=== PATIENT | male | born 1950 | race Caucasian/White ===

== ENCOUNTER 2017-02-02 07:42 | Emergency (ER) | payer BC ==
[~2017-02-02] VITALS: Ht 177.8 cm; Wt 84.2 kg
[~2017-02-02 07:42] MED LIST: IBUP-103 PO
[2017-02-02 07:47] VITALS: TEMP 36.7; Ht 177.8 cm; Wt 84.2 kg
[2017-02-02] MEDS ORDERED: OXYMETAZOLINE HCL 0.05% NA SPR 15 ML BTL ONE (07:52)
--- NOTE | 2017-02-02 07:59 | EMERGENCY ROOM VISIT NOTE ---
History First contact with patient: 07:50 Chief Complaint: NOSE BLEED (MINOR) Stated Complaint: NOSEBLEED History of Present Illness The patient is a 66 year old male who presents to the Emergency Room with complaints of epistaxis. The patient states that he blew his nose this morning around 7:15 and his nose began to bleed. He states he is not able to get the bleeding to stop. He does feel blood going down the back of his throat. The patient reports occasional blood with blowing his nose but never like this. He reports having epistaxis as a child. The patient does not take blood thinners. He does not have a history of hypertension. He is normotensive today. The patient denies any earache, sore throat, cough. He denies any pain in his chest or trouble breathing. Review of Systems A 10 system review of systems was completed with positives and pertinent negatives listed in the HPI. Past Medical/Surgical History Medical Problems: (1) Inguinal hernia (2) Prostate cancer Surgical Problems: (1) H/O prostatectomy Social History Smoking Status: Never Smoker Marital Status: Housing Status: lives with significant other Occupation Status: employed Current/Historical Medications No Active Prescriptions or Reported Meds Physical Exam Vital Signs Date Time Temp Pulse Resp B/P (MAP) Pulse Ox O2 Delivery O2 Flow Rate FiO2 02/02/17 08:43 67 15 133/77 97 02/02/17 07:47 36.7 73 20 128/90 97 Room Air Physical Exam VITALS: Vitals are noted on the nurse's note and reviewed by myself. Vital signs stable. The patient is normotensive. He is not tachycardic. GENERAL: This is a 66-year-old male, in no acute distress, nondiaphoretic, well- developed well-nourished. SKIN: The skin was without rashes, erythema, edema, or bruising. There is no tenting of the skin. Capillary reflex less than 2 seconds. HEAD: Normocephalic atraumatic. EARS: The external ears are normal in appearance. EYES: Pupils equal round and reactive to light and accommodation. Conjunctivae without injection, sclerae without icterus. Extraocular movements intact. NOSE: There is minimal active bleeding noted from the left naris. There is no blood noted in the right naris. There is no obvious excoriation to the septum. MOUTH: Mucous membranes moist. Tonsils are not enlarged. There is minimal blood noted in the posterior pharynx. Uvula midline. Airway patent. Tongue does not deviate. NECK: Supple without nuchal rigidity. No lymphadenopathy. No thyromegaly. Cervical spine is nontender. No JVD. HEART: Regular rate and rhythm without murmurs gallops or rubs. LUNGS: Clear to auscultation bilaterally without wheezes, rales or rhonchi. No retractions or accessory muscle use. MUSCULOSKELETAL: No muscle atrophy, erythema, or edema noted. Full range of motion in all extremities Normal gait. Strength 5/5 throughout. NEURO: Patient was alert and oriented to person place and time. No focal neurological deficits. Medical Decision & Procedures Medications Administered Medications (Trade) Dose Ordered Sig/Adryan Route Start Time Stop Time Status Last Admin Dose Admin Oxymetazoline HCl (Afrin 0.05% Nasal Harvey) 75 sprays STK-MED ONCE .ROUTE 02/02/17 07:52 02/02/17 07:53 DC 02/02/17 07:58 75 SPRAYS ED Course The patient was seen and examined. Previous visits were reviewed. The patient was normotensive. He does not take any blood thinners. The patient presented with spontaneous epistaxis from the left naris. Afrin was instilled and a clamp was placed for 20 minutes. The patient was reassessed and the bleeding had stopped. The patient should return with recurrence of bleeding that he cannot stop at home. Otherwise, he should follow-up with his family doctor or otolaryngology. Medical Decision Differential diagnosis includes hypertension, epistaxis, sinusitis, among others Medication Reconcilliation Current Medication List: was personally reviewed by me Blood Pressure Screening Patient's blood pressure: Normal blood pressure Blood pressure disposition: Did not require urgent referral Impression Primary Impression: Epistaxis Departure Information Dispostion Home / Self-Care Condition GOOD Prescriptions No Active Prescriptions or Reported Meds Referrals No Doctor, Assigned (PCP) Nhan Harris M.D. Patient Instructions ED [facility] Accumulate Additional Instructions Afrin. Harvey 2-3 sprays in your nostril if the bleeding begins again. Then, apply a nasal clamp to the lower part of your nose and leave on 15-20 minutes. If the bleeding continues after this, return to the emergency department. Do not use more than 6 sprays in 24 hours. Do not use the Afrin for more than 3 days in a row. Use a saline nasal spray to help moisturize the nasal passages. You may try Vaseline in the nostril at night to help keep it moisturized. Run a cool mist vaporizer in your room at night to help moisturize the air and prevent dryness to the nose. Return with any worsening bleeding or bleeding you cannot stop. Otherwise, follow up with an ENT doctor or your family doctor for recheck.
[2017-02-02 08:43] VITALS: BP 133/77; PULSE 67; O2SAT 97
== END 2017-02-02 08:44 | disposition home or self-care (01) ==
LOC: C.EDB 07:43 → C.EDA 08:44
DX: R04.0 Epistaxis (principal); C61 Malignant neoplasm of prostate

== ENCOUNTER 2017-08-02 22:11 | Emergency (ER) | payer BC, OTHER ==
[~2017-08-02] VITALS: Ht 177.8 cm; Wt 85.4 kg
[2017-08-02 22:20] VITALS: TEMP 36.7; Ht 177.8 cm; Wt 85.4 kg
[2017-08-02] MEDS ORDERED: PROPARACAINE HCL 0.5% OP SOLN 15 ML BTL OP STA (22:47)
--- NOTE | 2017-08-02 23:04 | EMERGENCY ROOM VISIT NOTE ---
History Report prepared by Asha: Kandice Newberry Under the Supervision of: Dr. Scottie Naranjo M.D. First contact with patient: 22:47 Chief Complaint: EYE ASSESSMENT Stated Complaint: LEFT EYE FLASHES,FLOATERS, OUT OF FOUCS History of Present Illness The patient is a 66 year old male who presents to the Emergency Room with complaints of an episode of vision changes beginning 4 hours ago. The patient reports he was sitting at the dining room table eating dinner when he started to have flashing lights in his left eye. About three hours ago, the patient started to have floaters and "fuzziness" in his left eye. Presently, the patient reports a single dark floater in the peripheral of his left eye. The patient is able to read without difficulty. He denies any fevers, chills, cough , or congestion. The patient wears glasses at baseline. The patient denies any history of eye surgery . He reports a history of floaters in his eye for several years. The patient reports neck pain for the last three months which he has been following up with a physician for. He reports a history of trigeminal neuralgia on his right side. He denies any history of diabetes or hypertension. Source of History: patient Onset: 4 hours ago Position: eye (left) Quality: other (vision changes) Timing: other (episode) Associated Symptoms: + neck pain, No fevers, No chills, No cough Review of Systems See HPI for pertinent positives and negatives. A total of ten systems were reviewed and were otherwise negative. Past Medical & Surgical Medical Problems: (1) Inguinal hernia (2) Prostate cancer Surgical Problems: (1) H/O prostatectomy Family History Patient reports no known family medical history. Social History Smoking Status: Never Smoker Marital Status: Housing Status: lives with significant other Occupation Status: employed Current/Historical Medications No Active Prescriptions or Reported Meds Allergies Coded Allergies: Oneida (Verified Allergy, Severe, SWOLLEN MOUTH, 02/02/17) Marino (Verified Allergy, Severe, SWOLLEN MOUTH, 02/02/17) Prune (Verified Allergy, Severe, SWOLLEN MOUTH, 02/02/17) Latex1 -Allergic Contact Dermititis (Verified Allergy, Unknown, RED,ITCHY SKIN, 02/02/17) Egg (Verified Adverse Reaction, Unknown, SEVERE DIARRHEA, 02/02/17) Physical Exam Vital Signs Date Time Temp Pulse Resp B/P (MAP) Pulse Ox O2 Delivery O2 Flow Rate FiO2 08/03/17 00:49 59 15 126/67 100 08/02/17 22:20 36.7 80 18 150/79 97 Room Air Right Eye Acuity: 20/20 Left Eye Acuity: 20/20 Physical Exam GENERAL: Awake, alert, well-appearing, in no distress HENT: Normocephalic, atraumatic. Oropharynx unremarkable. EYES: Normal conjunctiva. Sclera non-icteric. PEARRL, EOMI NECK: Supple. No nuchal rigidity. FROM. No JVD. RESPIRATORY: Clear to auscultation. CARDIAC: Regular rate, normal rhythm. Extremities warm and well perfused. Pulses equal. ABDOMEN: Soft, non-distended. No tenderness to palpation. No rebound or guarding. No masses. NEURO: Normal sensorium. No sensory or motor deficits noted. SKIN: No rash or jaundice noted. Medical Decision & Procedures Procedure Slit Lamp Examination Indication:vision change, floaters and blurry vision The left eye was prepped with topical proparacaine. Slit lamp examination was performed in the standard fashion. Cornea appeared clear. Anterior chamber clear. Scleral injection not present. no discharge present. Fluorescein examination performed and revealed clear. No foreign bodies noted. No corneal abrasions or ulcerations. Negative Jonny sign. The patient tolerated the procedure well without complication. ED Course 2249: The patient was evaluated in room B8. A complete history and physical exam was performed.Ultrasound of left eye at bedside showed scant floating debris within the globe, vitreous hemorrhage, no gross retinal detachment. 2356: I discussed the patient with Dr. Thompson-Promotions Specialist - He agreed to have the patient follow up with him on Friday. 0045: I reevaluated the patient. Discussed results and discharge instructions: He verbalized understanding and agreement. The patient is ready for discharge. Medical Decision I reviewed the patient's past medical history, medications, and the nursing notes as described above. DIfferential diagnoses include: retinal detachment, vitreous detachment, vitreous hemorrhage, foreign body, corneal abrasion, corneal ulceration, glaucoma. The patient is a 66-year-old gentleman who presents emergency department with left eye floaters that began 4 hours prior to arrival per hpi. While the patient is well-appearing no acute distress, afebrile stable vital signs. Patient's visual acuity is unremarkable 20/20. Foot lamp exam demonstrates clear anterior chamber with no evidence of corneal abrasion or ulceration, normal boris seen exam. IOP is within normal limits. R 14 and L 13.5. Outside ultrasound did not demonstrate any gross retinal detachment. Otherwise shows small amount of hyperechoic debris consistent with vitreous floaters. Case was discussed with Dr. Matson, ophthalmology on-call, who agrees with plan for outpatient follow-up. Recommends that the patient avoid any strenuous activity until he is seen. The patient becomes worse over the weekend he is instructed to contact Dr. Tobar is office communication professor number to be seen in his office. Findings and plan for follow-up reviewed with patient. Patient agreeable and d/c'd per discharge instructions. Medication Reconcilliation Current Medication List: was personally reviewed by me Blood Pressure Screening Patient's blood pressure: Elevated blood pressure Blood pressure disposition: Elevated BP felt to be situational Consults Time Called: 2349 Consulting Physician: Dr. Thompson-Opthalmologist Returned Call: [phone] I discussed the patient with Dr. Thompson-Opthalmologist - He agreed to have the patient follow up with him on Friday. Impression Primary Impression: Vitreous floaters Scribe Attestation The scribe's documentation has been prepared under my direction and personally reviewed by me in its entirety. I confirm that the note above accurately reflects all work, treatment, procedures, and medical decision making performed by me. Departure Information Dispostion Home / Self-Care Prescriptions No Active Prescriptions or Reported Meds Referrals Bradly García M.D. (PCP) Alexander Thompson M.D. Forms HOME CARE DOCUMENTATION FORM, IMPORTANT VISIT INFORMATION, WORK / SCHOOL INSTRUCTIONS Patient Instructions Flashes and Floaters, Flashes and Floaters Tx, My [facility] Additional Instructions Please follow up with ophthalmology, Dr. Thompson, on Friday for re- evaluation. You likely have vitreous floaters. Otherwise, your exam did not show signs of an emergent condition at this time. Avoid strenuous physical activity until reevaluated on Friday. If your symptoms worsen you may contact Dr. Matson's office directly for reevaluation. Or you may also return to the emergency department.
[2017-08-03 00:49] VITALS: BP 126/67; PULSE 59; O2SAT 100
== END 2017-08-03 00:50 | disposition home or self-care (01) ==
LOC: C.EDB 22:12
DX: H43.393 Other vitreous opacities, bilateral (principal); M54.2 Cervicalgia; K40.90 Unilateral inguinal hernia, without obstruction or gangrene, not specified as recurrent; Z86.69 Personal history of other diseases of the nervous system and sense organs; Z85.46 Personal history of malignant neoplasm of prostate; Z91.040 Latex allergy status; Z91.012 Allergy to eggs; Z91.018 Allergy to other foods